=== PATIENT | male | born 1980 | race Caucasian/White ===

== ENCOUNTER 2017-09-15 13:51 | Day surgery (SDC) | payer SELFPAY ==
[~2017-09-15] VITALS: Ht 175.3 cm; Wt 78.5 kg
[~2017-09-15 13:51] MED LIST: TRANEXAMIC ACID 100 MG/ML 10 ML INJECTION IV ONE
--- OUTSIDE RECORDS SUMMARY | 2017-09-15 13:55 | XMS REPORT ---
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 Name Role Phone SHADY GRIFFITH CP Unavailable Allergies No Known Allergies Problems Problem Type Condition Code Onset Dates Condition Status Problem Nondependent cannabis abuse, unspecified 305.20 Active Problem Bipolar disorder, unspecified 296.80 Active Problem Nondependent amphetamine or related acting sympathomimetic abuse, unspecified 305.70 Active Problem Unspecified gastritis and gastroduodenitis without mention of hemorrhage 535.50 Active Problem Acute pharyngitis 462 Active Problem Pain in joint, site unspecified 719.40 Active Medications No Known Medications Results No Known Results Summary Purpose [employer] Submission
--- OUTSIDE RECORDS SUMMARY | 2017-09-15 13:55 | XMS REPORT | Continuity of Care Document ---
Author Author [facility] Organization [facility] Address Unknown Phone Unavailable Allergies Medications Problems Procedures Results Encounters ACCT No. Visit Date/Time Discharge Status Pt. Type Provider Facility Loc./Unit Complaint [id number] 03/09/2016 18:49:00 2015 19:09:00 DIS Emergency BRUCE WEBB, JAK [facility]
[2017-09-15] MEDS ORDERED: HYDROmorphone (DILAUDID) 2 MG/ML VIAL ONE (13:56)
[2017-09-15] MEDS ORDERED: SUCCINYLCHOLINE INJ 100 MG/5 ML SYR INJ ONE (14:03)
[2017-09-15] MEDS ORDERED: ETOMIDATE IV SOLN 20 MG/10 ML VIAL IV ONE (14:03)
[2017-09-15] MEDS ORDERED: fentaNYL INJECTION 100 MCG/2 ML AMP INJ ONE (14:03)
[2017-09-15] MEDS ORDERED: MIDAZOLAM 5 MG/5 ML (VERSED) VIAL INJ ONE (14:03)
[2017-09-15] MEDS ORDERED: LIDOCAINE/EPI 1%-1:200,000 (XYLOCAINE) 10 ML VIAL ONE (14:06)
[2017-09-15 14:08] LABS: MEAN PLATELET VOLUME 11.2 FL (7.4-10.4); RED BLOOD COUNT 4.6 10^6/uL (4.35-5.85); RED CELL DISTRIBUTION WIDTH 12.4 % (10.0-14.5); WHITE BLOOD COUNT 7.6 10^3/uL (4.3-11.0)
[2017-09-15] MEDS ORDERED: ONDANSETRON 4 MG/2 ML (SDV) Z0FRAN ONE (14:08)
[2017-09-15] MEDS ORDERED: DEXAMETHASONE 10 MG/ML (DECADRON) 1 ML VIAL ONE (14:08)
[2017-09-15] MEDS ORDERED: proPOfol 200 MG/20 ML (DIPRIVAN) VIAL IV ONE (14:08)
[2017-09-15] MEDS ORDERED: SEVOFLURANE (ULTANE) 15 ML INHAL SOLN ONE ×3 (14:08→15:30)
[2017-09-15] MEDS ORDERED: MIDAZOLAM 2 MG/2 ML (VERSED) VIAL ONE (14:09)
[2017-09-15] MEDS ORDERED: fentaNYL INJECTION 100 MCG/2 ML AMP ONE (14:09)
[2017-09-15] MEDS ORDERED: NS (IVPB) 50 ML ONE (14:19)
--- NOTE | 2017-09-15 14:22 | Consultation ---
History of Present Illness History of Present Illness Patient Consulted On(mary/time) 09/15/17 14:16 Time Seen by Provider: 13:51 History of Present Illness Pt is a 36 yo male who was using chainsaw to cut tree, when it bounced back into his left lower leg. Police department on seen saw large amount of spurting blood and tourniquet placed. I saw him as he entered the emergency department. According to EMS he "passed out a few times"; unknown if this was just due to pain, they placed a real tourniquet. Pt complaining of 10 out of 10 pain, sharp pain that radiates up to knee and then groin. This occurred just prior to coming in via EMS. Pt did not mention any specific nerve or sensation loss, pain unable to control and he was intubated in the ER. Allergies and Home Medications Allergies Coded Allergies: Morphine (Verified Allergy, "makes me violently ill", 09/15/17) Past Qgixcpp-Ikaxkk-Yxwlnr Hx Patient Social History Alcohol Use: Denies Use Recreational Drug Use: Yes Smoking Status: Never a Smoker Recent Foreign Travel: No Contact w/Someone Who Travel: No Immunizations Up To Date Tetanus Booster (TDap): More than 5yrs Seasonal Allergies Seasonal Allergies: No Surgeries Surgeries: Abdominal (hernia repairs), Appendectomy, Orthopedic Respiratory History of Respiratory Disorde: No Cardiovascular History of Cardiac Disorders: No Neurological History of Neurological Disord: No Reproductive System Hx Reproductive Disorders: No Sexually Transmitted Disease: No HIV/AIDS: No Gastrointestinal History of Gastrointestinal Di: No Musculoskeletal Musculoskeletal Disorders: Arthritis, Fractures Endocrine History of Endocrine Disorders: No HEENT History of HEENT Disorders: No Loss of Vision: Denies Cancer History of Cancer: No Psychosocial History of Psychiatric Problem: No Integumentary History of Skin or Integumenta: No Blood Transfusions History of Blood Disorders: No Family Medical History Significant Family History: CAD Over 55 Years Old (Father), COPD (Mother), Diabetes (Mother) Review of Systems-General Constitutional: No chills, No diaphoresis, dizziness EENTM: No blurred vision, No double vision, No mouth pain, No mouth swelling, No epistaxis Respiratory: No cough, No dyspnea on exertion, No hemoptysis, No short of breath Cardiovascular: No chest pain, No edema, No palpitations Gastrointestinal: No abdominal pain, No constipation, No hematemesis, No jaundice Genitourinary: No dysuria, No frequency, No hematuria, No hesitancy Musculoskeletal: see HPI Skin: see HPI Psychiatric/Neurological: Denies Anxiety, Denies Depressed Other denies any history of abnormal bleeding or bruising, denies heat or cold intolerance Physical Exam-General Problems Physical Exam Vital Signs Capillary Refill : General Appearance: WD/WN, severe distress Eyes: Bilateral Eye PERRL, Bilateral Eye EOMI HEENT: pharynx normal, No scleral icterus (R), No scleral icterus (L), No pale conjunctivae (R), No pale conjunctivae (L), No pharyngeal erythema Neck: non-tender, full range of motion, normal inspection, No thyromegaly Respiratory: chest non-tender, lungs clear, normal breath sounds, no respiratory distress, no accessory muscle use Cardiovascular: regular rate, rhythm, no edema, no murmur Gastrointestinal: normal bowel sounds, non tender, soft, no organomegaly, no pulsatile mass Rectal: deferred Back: no CVA tenderness, no vertebral tenderness Extremities: normal range of motion, non-tender, normal inspection, no pedal edema, no calf tenderness, other (large laceration appx 3 inches above medial malleolus, profuse bleeding once tourniquet is taken down, cannot tell from where. Does not appear to be any obvious tendon damage, will get better idea in controlled environment of OR.) Neurologic/Psychiatric: contract implementation analyst II-XII nml as tested, alert, oriented x 3 Skin: normal color, warm/dry Lymphatic: no adenopathy (neck, axilla or groin) Data Review Labs Laboratory Tests 09/15/17 14:01: White Blood Count 7.6, Red Blood Count 4.60, Hemoglobin 13.9, Hematocrit 42, Mean Corpuscular Volume 90, Mean Corpuscular Hemoglobin 30, Mean Corpuscular Hemoglobin Concent 34, Red Cell Distribution Width 12.4, Platelet Count 153, Mean Platelet Volume 11.2H 09/15/17 14:09: Assessment/Plan Assessment/Plan Assessment/Plan 1. Traumatic Laceration Left lower Extremity 2. Uncontrolled bleeding from vessels lower extremity 3. Incarcerated [facility] Plan is to take pt to OR for exploration, ligation, and washout of traumatic laceration. Spoke to pt just prior to intubation and explained why we needed to do this; got consent from his parents. Discussed possibility of pain, bleeding, infection, scar and damage to vessels and nerve. We do not know if there was any nerve damage prior to OR, could not asses and I will try and avoid any nerves. Will look for any tendon damage; spoke with the Orthopedic surgeon instructional media services technician, most concern is for the achilles tendon and much less for posterior tibial tendon. Only an Achilles would need immediate repair. Will try and wash area out and will most likely have to leave incision open; muscles cannot be sewn together, will heal on their own. WALLACE GUILLEN DO Sep 15, 2017 14:21
--- NOTE | 2017-09-15 14:29 | ED Trauma-Multisystem ---
General Chief Complaint: Trauma EMS/Air Arrival Activat Stated Complaint: CHAINSAW INJ TO LEG Source of Information: Patient, EMS Exam Limitations: No Limitations History of Present Illness Time Seen by Provider: 13:50 Initial Comments Here with report of chainsaw injury to the left lower leg inner aspect. He was capnometry at home when this occurred approximately 40 minutes ago. Estimated blood loss in the field was approximately 1 L or less. Tourniquet was applied by intellectual property lawyer arriving on scene. Apparently the wound was bleeding quite significantly despite direct pressure prior to tourniquet placement. Denies other injury. Occurred: Just Prior to Arrival Severity: Moderate, Severe Pain/Injury Location: Lower Extremity Method of Injury: Other (chainsaw) Modifying Factors: No Movement Associated Symptoms (Fall): No Abdominal Pain, No Chest Pain, No Nausea/ Vomiting, No Shortness of Air Allergies and Home Medications Allergies Coded Allergies: morphine (Verified Allergy, Unknown, "makes me violently ill", 09/15/17) Constitutional: see HPI, No chills, diaphoresis, No fever Eyes: No Symptoms Reported Ears: No Symptoms Reported Nose: No Symptoms Reported Mouth: No Symptoms Reported Throat: No Symptoms to Report Respiratory: no symptoms reported Cardiovascular: No Symptoms Reported Musculoskeletal: see HPI, joint pain, muscle pain Skin: see HPI, lesions, No pruritus All Other Systems Reviewed Negative Unless Noted: Yes Past Hdbsjvi-Ycnrkx-Ofgmfp Hx Patient Social History Alcohol Use: Denies Use Recreational Drug Use: Yes (methamphetamine) Smoking Status: Unknown if Ever Smoked Recent Foreign Travel: No Contact w/Someone Who Travel: No Surgeries History of Surgeries: Yes Surgeries: Orthopedic, Tonsillectomy Respiratory History of Respiratory Disorde: No Cardiovascular History of Cardiac Disorders: No Neurological History of Neurological Disord: No Gastrointestinal History of Gastrointestinal Di: No Musculoskeletal History of Musculoskeletal Dis: Yes Musculoskeletal Disorders: Fractures Endocrine History of Endocrine Disorders: No Reviewed Nursing Assessment Reviewed/Agree w Nursing PMH: Yes Family Medical History Significant Family History: Hypertension, Lung Disease Other Limited history due to trauma and clinical condition. Physical Exam General Appearance: WD/WN, Moderate Distress Head: No Evidence of Injury Eyes: Bilateral Eye Normal Inspection, Bilateral Eye PERRL, Bilateral Eye EOMI Ears, Nose, Throat: Hearing Grossly Normal, No Evidence of ENT Injury Neck: Full Range of Motion, Normal Inspection, Non Tender, Supple Cardiovascular: Regular Rate, Rhythm, No Murmur Respiratory: Lungs Clear, Normal Breath Sounds Gastrointestinal: Non Tender, Soft Back: Normal Inspection, No CVA Tenderness, No Vertebral Tenderness Extremity: Normal Range of Motion, Non Tender Neurologic/Psychiatric: Alert, Oriented x3 Skin: Cool, Damp, Pallor, Other (10 cm laceration to the medial aspect of the left lower leg above the ankle with waiting controlled with tourniquet but significant bleeding when tourniquet off.) Gertrude Coma Score Best Eye Response ([place]): (4) Open Spontaneously Best Verbal Response ([place]): (5) Oriented Best Motor Response ([place]): (6) Obeys Commands Date of ETT Placement: Sep 15, 2017 Time of ETT Placement: 14:09 Intubation Method: orotracheal Tube Size: 8 Medications: Etomidate, Succinylcholine Positive End Tide CO2: Yes Breath Sounds after Intubation: bilateral-equal Intubation Complications: no complications Post Intubation Xray: No Progress Patient to surgery after intubation. Patient has good lung volumes bilaterally with good O2 saturations and no apparent complications. Anesthesia assumed care of the patient's ventilation after intubation. I did discuss the fact that no chest x-ray was done with anesthesia when patient was in OR. They will monitor respiratory status. Progress/Results/Core Measures Results/Orders Lab Results Laboratory Tests Test 09/15/17 14:01 Range/Units White Blood Count 7.6 4.3-11.0 10^3/uL Red Blood Count 4.60 4.35-5.85 10^6/uL Hemoglobin 13.9 13.3-17.7 G/DL Hematocrit 42 40-54 % Mean Corpuscular Volume 90 80-99 FL Mean Corpuscular Hemoglobin 30 25-34 PG Mean Corpuscular Hemoglobin Concent 34 32-36 G/DL Red Cell Distribution Width 12.4 10.0-14.5 % Platelet Count 153 130-400 10^3/uL Mean Platelet Volume 11.2 H 7.4-10.4 FL My Orders Orders - PRANAV ROBERTO MD Hydromorphone Injection (Dilaudid Inject (09/15/17 13:56) Progress Note : Progress Note Seen and evaluated. Type I activation due to report of verbal consciousness. Apparently patient was nearly passing out with pain and blood loss at home. ATLS exam performed. Surgeon at bedside on patient's arrival (Dr. James). Rapid exam and evaluation completed. We did evaluate the wound with a tourniquet on and then loosened tourniquet. Wound bleeding was vigorous with partial reduction of tourniquet pressure. Attempted to reapply tourniquet twice and ultimately did get bleeding controlled. Patient in severe pain and writhing around in the bed due to the wound in the tourniquet. Patient will go to surgery for evaluation, repair and debridement. Report consent from patient to Dr. James for surgery. Family aware and didn't get to talk with the patient. Patient did receive 150 g of fentanyl by EMS as normal saline via large bore IV 1 L bolus. He did receive Dilaudid 2 mg IV after arrival. Due to severe pain and the fact that he is going emergently to surgery for repair of wound, elective intubation. ET tube placed without complications. Postintubation sedation with Versed 5 mg IV and fentanyl 100 g IV. TXA has been ordered. Surgery crew arrives. Patient is starting to move a little bit. Anticipate rocuronium by surgery crew. Tetanus is up-to-date. To OR with surgery crew and respiratory therapy at bedside at 1423. Departure Impression Impression: Primary Impression: Laceration of left lower extremity Qualified Codes: S81.812A - Laceration without foreign body, left lower leg, initial encounter Additional Impression: Laceration of artery Disposition: ADMITTED INPATIENT Condition: Stable Admissions Decision to Admit Reason: Admit from ER (Trauma) Decision to Admit/Date: Sep 15, 2017 Time/Decision to Admit Time: 14:23 Departure-Patient Inst. Referrals: NO,LOCAL PHYSICIAN (PCP/Family) Primary Care Physician PRANAV ROBERTO MD Sep 15, 2017 14:29
[2017-09-15] MEDS ORDERED: NS IV ONE (14:30)
[2017-09-15] MEDS ORDERED: TRANEXAMIC ACID IV ONE (14:30)
[2017-09-15 14:31] LABS: INR 1.1 (0.8-1.4); PROTHROMBIN TIME PATIENT 14.3 SEC (12.2-14.7)
[2017-09-15 14:40] LABS: ALANINE AMINOTRANSFERASE 8 U/L (0-55); ALBUMIN 3.9 GM/DL (3.2-4.5); ALCOHOL < 10 MG/DL (<10); ANION GAP 9 MMOL/L (5-14); ASPARTATE AMINO TRANSFERASE 14 U/L (5-34); BILIRUBIN,DIRECT 0.2 MG/DL (0.0-0.3); BILIRUBIN,INDIRECT 0.4 MG/DL; BILIRUBIN,TOTAL 0.6 MG/DL (0.1-1.0); BLOOD UREA NITROGEN 18 MG/DL (7-18); BUN/CREATININE RATIO 15; CARBON DIOXIDE 22 MMOL/L (21-32); CHLORIDE 107 MMOL/L (98-107); CREATINE KINASE 110 U/L (30-200); CREATININE SERUM 1.19 MG/DL (0.60-1.30); GFR ESTIMATED > 60; GLUCOSE 132 MG/DL (70-105); MAGNESIUM 1.5 MG/DL (1.8-2.4); PHOSPHORUS 2.5 MG/DL (2.3-4.7); POTASSIUM 3.8 MMOL/L (3.6-5.0); SODIUM 138 MMOL/L (135-145); TOTAL PROTEIN 6.5 GM/DL (6.4-8.2)
[2017-09-15] MEDS ORDERED: ceFAZolin 1,000 MG (ANCEF) VIAL ONE (14:44)
[2017-09-15] MEDS ORDERED: LACTATED RINGERS 1,000 ML IV PRN (14:45)
--- NOTE | 2017-09-15 15:07 | Progress Note-Post Operative ---
Post-Operative Progess Note Surgeon (s)/Vocational Instructor (s) Surgeon WALLACE GUILLEN DO Vocational Instructor: Anival Ramos MS III Pre-Operative Diagnosis Traumatic Laceration left lower extremity with vascular injury Post-Operative Diagnosis Same Procedure & Operative Findings Date of Procedure 09/15/17 Procedure Performed/Findings Ligation of bleeding vessels Washout Anesthesia Type GET Estimated Blood Loss Estimated blood loss (mL): 100ml during surgery Specimens/Packing Specimens Removed none WALLACE GUILLEN DO Sep 15, 2017 15:07
[2017-09-15] MEDS ORDERED: ONDANSETRON 4 MG/2 ML (SDV) Z0FRAN IVP PRN ×2 (15:15→15:30)
[2017-09-15] MEDS ORDERED: PROMETHAZINE INJ 25 MG/ML (PHENERGAN) AMP IVP PRN (15:30)
[2017-09-15] MEDS ORDERED: HYDROmorphone (DILAUDID) 2 MG/ML VIAL IVP PRN (15:30)
[2017-09-15] MEDS ORDERED: PHENYLEPHRINE 100 MCG/ML 10 ML (ANESTHESIA) SYR ONE (15:30)
[2017-09-15] MEDS ORDERED: MEPERIDINE (DEMEROL) INJ 50 MG/ML IVP PRN (15:30)
[2017-09-15] MEDS ORDERED: GLYCOPYRROLATE 0.2 MG/ML (ROBINUL) 2 ML VIAL ONE (15:30)
[2017-09-15] MEDS ORDERED: NEOSTIGMINE (BLOXIVERZ ) 1 MG/1ML 10 ML VIAL ONE (15:30)
[2017-09-15] MEDS ORDERED: ROCURONIUM 50 MG/5 ML (ZEMURON) VIAL IV ONE (15:32)
[2017-09-15] MEDS: LACTATED RINGERS 1,000 ML IV SCH (15:41)
[2017-09-15 16:30] VITALS: BP_SYST 123; BP_SYST 182; BP_DIAS 80; BP_DIAS 85
[2017-09-15] MEDS: HYDROmorphone (DILAUDID) 2 MG/ML VIAL IVP PRN (17:41)
[2017-09-15] MEDS ORDERED: CATHETER FLUSH 10 ML SYR IV PRN (18:15)
[2017-09-15] MEDS ORDERED: INFLUENZA TRIvalent 2017-2018 0.5 ML/45 MCG SYR IM ONE (19:15)
[2017-09-15 19:21] VITALS: BP 135/80
[2017-09-16] VITALS: BP 143/87
[2017-09-16] MEDS: HYDROcodone/APAP 10 MG/325 MG (LORTAB) TAB PO PRN ×3 (00:08→13:58)
--- NOTE | 2017-09-16 00:21 | OPERATIVE REPORT ---
DATE OF SERVICE: 09/15/2017 PREOPERATIVE DIAGNOSES: 1. Traumatic laceration to the left lower extremity medial aspect. 2. Bleeding vessels, possibly artery. POSTOPERATIVE DIAGNOSES: 1. Traumatic laceration to the left lower extremity medial aspect. 2. Bleeding vessels, possibly artery with possible damage to nerves. PROCEDURES: 1. Ligation of bleeding vessels. 2. Washout of laceration. SURGEON: Dr. James. WHARF LABORER: Medical Student, Anival Godwin. SPECIMENS: None. BLOOD LOSS: Approximately 100 mL during the case, but probably more prior to this. FLUIDS: Per anesthesia. POSTOPERATIVE CONDITION: Stable. INDICATION FOR PROCEDURE: The patient is a 36-year-old male who was at home cutting a tree and the chainsaw bounced back and hit him in the left lower extremity approximately 2 inches above the medial malleolus. It actually from almost the edge of the tibia out and then back posteriorly, had a tourniquet placed could not assess in the ER. He was in pain and he was intubated and taken directly to the operating room for emergent operation. FINDINGS: The patient had a long laceration approximately 4 inches long, stretching from about the edge of the tibia and going posteriorly and distally down to about 2 inches above the medial malleolus. It did look like it got a small portion of the Achilles tendon and then mostly some muscle damage as well as with the vascular damage and possibly one damaged nerve, could not tell. PROCEDURE NOTE: After informed consent was obtained, the patient was brought to the operating room. He was placed in the bed in the supine position. He had been intubated in the ER. He was sterilely prepped and draped in normal fashion with a tourniquet placed. I identified some vessels that were completely lacerated and then small vessels that looked like arterial and venous, grasped these with hemostats, and then ligated with 3-0 Vicryl ties and then tried to identify any further vessels, tied off superiorly and inferiorly, tied at least 1 artery and one vein on both sides and then some other small vasculature areas also tied, ligated with, I believe it was 3-0, it might have been 2-0 Vicryl. At this point, the tourniquet had been on 340, brought it down to 240, started getting some bleeding from the edges of the wound. This was controlled with Bovie electrocautery. Had some deep muscle bleeding. I saw another small artery bleeding in the middle muscle belly. This was controlled with Bovie electrocautery, took it down to 140 and then took the tourniquet all the way off. At this point, there was only minimal bleeding from the edges of the wound and skin, controlled with Bovie electrocautery and then washed out with a pulse electric trucker, 2 liters of saline to wash this out. At the end, there did not appear to be any fast bleeding. There was minimal, minimal oozing. Could identify the Achilles tendon. When I moved the foot up and down it moved. It was mostly intact. There may have been a small 2 to 3 mm portion of it that had gotten cut with the chainsaw. Mostly the soleus muscle that was involved. I saw what looked like possibly one nerve was cut, could not find the distal portion of it. It looked like there was another nerve intact. This is most likely tibial artery and possibly the saphenous vein, unsure which exactly vessels were cut and could not tell if the posterior tibial tendon was affected. Will have to reassess once the patient wakes up and we can do a better physical exam. We will need pain control, then packed this wound 4 x 4's and then wrapped it with Kerlix and the patient was then transferred to recovery room in stable condition. Sponge, instrument and needle count correct at the end of the case. Job ID: [id number] DocumentID: [id number] Dictated Date: 09/15/2017 16:00:15 Plastic Outfitter Date: 09/15/2017 23:50:12 Dictated By: WALLACE JAMES DO
[2017-09-16] MEDS: LACTATED RINGERS 1,000 ML IV SCH ×2 (01:57→10:14)
[2017-09-16] MEDS: HYDROmorphone (DILAUDID) 2 MG/ML VIAL IVP PRN ×2 (04:50→10:06)
[2017-09-16 05:00] VITALS: BP 136/91
[2017-09-16 06:13] LABS: BASOPHILS % (AUTO) 0 % (0-10); EOSINOPHILS % (AUTO) 0 % (0-10); LYMPHOCYTES # (AUTO) 0.8 X 10^3 (1.0-4.0); LYMPHOCYTES % (AUTO) 6 % (12-44); MEAN CORPUSCULAR HEMOGLOBIN 30 PG (25-34); MEAN CORPUSCULAR HGB CONC 34 G/DL (32-36); MEAN CORPUSCULAR VOLUME 91 FL (80-99); MEAN PLATELET VOLUME 11.2 FL (7.4-10.4); MONOCYTES # (AUTO) 0.8 X 10^3 (0.0-1.0); MONOCYTES % (AUTO) 7 % (0-12); NEUTROPHILS # (AUTO) 11.4 X 10^3 (1.8-7.8); NEUTROPHILS % (AUTO) 87 % (42-75); PLATELET COUNT 250 10^3/uL (130-400); RED BLOOD COUNT 4.32 10^6/uL (4.35-5.85); RED CELL DISTRIBUTION WIDTH 12.3 % (10.0-14.5)
[2017-09-16 06:23] LABS: ALANINE AMINOTRANSFERASE 10 U/L (0-55); ALBUMIN 3.7 GM/DL (3.2-4.5); ANION GAP 9 MMOL/L (5-14); ASPARTATE AMINO TRANSFERASE 12 U/L (5-34); BILIRUBIN,TOTAL 0.5 MG/DL (0.1-1.0); BLOOD UREA NITROGEN 17 MG/DL (7-18); BUN/CREATININE RATIO 18; CALCIUM 8.3 MG/DL (8.5-10.1); CARBON DIOXIDE 24 MMOL/L (21-32); CHLORIDE 102 MMOL/L (98-107); CREATININE SERUM 0.97 MG/DL (0.60-1.30); GFR ESTIMATED > 60; GLUCOSE 126 MG/DL (70-105); POTASSIUM 4.3 MMOL/L (3.6-5.0); SODIUM 135 MMOL/L (135-145); TOTAL PROTEIN 6.1 GM/DL (6.4-8.2)
[2017-09-16 08:00] VITALS: BP 119/69
[2017-09-16 09:16] VITALS: BP 119/69
--- NOTE | 2017-09-16 10:08 | Progress Note ---
Subjective Time Seen by Provider: 09:54 Subjective/Events-last exam Pt seen and examined, tolerating clears would like to eat more. Pain is manageable if he is not moving, otherwise "feels like my foot is dipped in lava". Taking only oral meds right now. Review of Systems General: No Chills, No Night Sweats Cardiovascular: No: Chest Pain Objective Exam Vital Signs Date Time Temp Pulse Resp B/P (MAP) Pulse Ox O2 Delivery O2 Flow Rate FiO2 09/16/17 08:00 99.3 91 20 119/69 (86) 97 Room Air 09/16/17 05:00 98.5 99 19 136/91 (106) 96 Room Air 09/16/17 00:00 97.3 88 18 143/87 (105) 98 Room Air 09/15/17 19:21 97.1 62 18 135/80 (98) 96 Room Air 09/15/17 18:12 98.4 09/15/17 17:41 98.4 09/15/17 16:40 96 Room Air 09/15/17 16:30 96.2 77 16 123/85 (98) 96 Room Air 09/15/17 14:23 95.9 99 14 100 Ambu Bag 09/15/17 13:55 95.9 99 18 133/125 (128) 100 I & O 09/16/17 07:00 Intake Total 1600 ml Output Total 375 ml Balance 1225 ml Capillary Refill : Less Than 3 SecondsLess Than 3 Seconds General Appearance: WD/WN, Mild Distress Respiratory: Lungs Clear, Normal Breath Sounds Cardiovascular: Regular Rate, Rhythm, No Murmur Extremity: Other (pt can wiggle toes, proprioception is also normal on all toes , can move foot all directions, but it causes severe pain) Neurologic/Psychiatric: Alert, Oriented x3 Results Lab Laboratory Tests 09/15/17 14:01: White Blood Count 7.6, Red Blood Count 4.60, Hemoglobin 13.9, Hematocrit 42, Mean Corpuscular Volume 90, Mean Corpuscular Hemoglobin 30, Mean Corpuscular Hemoglobin Concent 34, Red Cell Distribution Width 12.4, Platelet Count 153, Mean Platelet Volume 11.2H 09/15/17 14:09: Prothrombin Time 14.3, INR Comment 1.1, Activated Partial Thromboplast Time 23L , Fibrinogen 270, D-Dimer 0.30, Sodium Level 138, Potassium Level 3.8, Chloride Level 107, Carbon Dioxide Level 22, Anion Gap 9, Blood Urea Nitrogen 18, Creatinine 1.19, Estimat Glomerular Filtration Rate > 60, BUN/Creatinine Ratio 15, Glucose Level 132H, Calcium Level 8.0L, Phosphorus Level 2.5, Magnesium Level 1.5L, Total Bilirubin 0.6, Direct Bilirubin 0.2, Indirect Bilirubin 0.4, Aspartate Amino Transf (AST/SGOT) 14, Alanine Aminotransferase (ALT/SGPT) 8, Alkaline Phosphatase 63, Total Creatine Kinase 110, Troponin I < 0.30, Total Protein 6.5, Albumin 3.9, Serum Alcohol < 10 09/16/17 05:54: White Blood Count 13.0H, Red Blood Count 4.32L, Hemoglobin 13.1L, Hematocrit 39L , Mean Corpuscular Volume 91, Mean Corpuscular Hemoglobin 30, Mean Corpuscular Hemoglobin Concent 34, Red Cell Distribution Width 12.3, Platelet Count 250, Mean Platelet Volume 11.2H, Sodium Level 135, Potassium Level 4.3, Chloride Level 102, Carbon Dioxide Level 24, Anion Gap 9, Blood Urea Nitrogen 17, Creatinine 0.97, Estimat Glomerular Filtration Rate > 60, BUN/Creatinine Ratio 18, Glucose Level 126H, Calcium Level 8.3L, Total Bilirubin 0.5, Aspartate Amino Transf (AST/SGOT) 12, Alanine Aminotransferase (ALT/SGPT) 10, Alkaline Phosphatase 59, Total Protein 6.1L, Albumin 3.7, Neutrophils (%) (Auto) 87H, Lymphocytes (%) (Auto) 6L, Monocytes (%) (Auto) 7, Eosinophils (%) (Auto) 0, Basophils (%) (Auto) 0, Neutrophils # (Auto) 11.4H, Lymphocytes # (Auto) 0.8L, Monocytes # (Auto) 0.8, Eosinophils # (Auto) 0.0, Basophils # (Auto) 0.0 Assessment/Plan Assessment/Plan Assessment/Plan 1. Traumatic Laceration Left lower Extremity 2. Uncontrolled bleeding from vessels lower extremity 3. Incarcerated [facility] Plan is to increase diet, PT consult. Will do dressing changes daily and as needed. Plan to try only oral pain meds and get pt home possibly tomorrow. Clinical Quality Measures DVT/VTE Risk/Contraindication: Risk Factor Score Per Nursin RFS Level Per Nursing on Admit: 2=Moderate WALLACE GUILLEN DO Sep 16, 2017 10:08
[2017-09-16] MEDS ORDERED: IBUP-30 PO (10:34)
--- NOTE | 2017-09-16 13:38 | Physical Therapy Ortho Eval ---
PT Orthopedic Evaluation Type of Surgery Traumatic laceration to distal lateral aspect of L LE Prior Level of Function Current Living Status: Significant Other Locomotion (Upon Admit): Independent Subjective Subjective Patient states he is in a lot of pain and cannot put pressure through the L LE. Patient is very eager to leave the hospital. Patient agrees to use of FWW for ambulation until he feels comfortable to WB through L LE. Entry Into Home: Stairs Without Railing Steps Into Home: 3 Motor Control Motor Control: Motor Control WNL ROM ROM: WFL, except focal deficit Strength Strength: WFL Transfer Transfers (B, C, W/C) (FIM): 6 Patient transfers with mod I accounting for inability to freely move L LE from pain. Gait Gait Assistive Device: FWW Patient ambulates with NWB L LE and hops to the FWW. Patient ambulation is safe. Right Lower Extremity: Right Weight Bearing Status RLE: Full Weight Bearing Left Lower Extremity: Left Other Weight Bearing Inst.: does not have WB status; chooses to NWB through L LE Gait (FIM): 6 Distance: 200' Gait Level of Assist: 6 Summary/Comments Patient overall health and ability to propel FWW with hop to gait and understanding of safe ambulation deem this patient safe for dismissal from PT services. Treatment Rendered Treatment: Gait Train Assessment/Goals Goal Time Frame: 1 Visit Safe Ambulation: Yes Plan Treatment Plan: Discharge PT/Family Agrees to Plan: Yes Time Time In: 1250 Time Out: 1305 Total Billed Treatment Time: 15 Billed Treatment Time 1 visit EVL 15 min BRITTNEY COOPER PT Sep 16, 2017 13:38
--- NOTE | 2017-09-16 14:22 | Anesthesia-General Post-Op ---
General Patient Condition Mental Status/LOC: Same as Preop Cardiovascular: Satisfactory Nausea/Vomiting: Absent Respiratory: Satisfactory Pain: Controlled Complications: Absent Post Op Complications Complications None Follow Up Care/Instructions Patient Instructions None needed. Anesthesia/Patient Condition Patient Condition Patient is doing well, no complaints, stable vital signs, no apparent adverse anesthesia problems. No complications reported per nursing. PASCUAL HUDSON CRNA Sep 16, 2017 14:22
--- NOTE | 2017-09-16 15:42 | Discharge Inst-Surgical ---
Discharge Inst-Surgical Depart Medication/Instructions New, Converted or Re-Newed RX: RX Given to Pt/Family Patient Instructions Follow up Appt: Make appointment for Wednesday 09/19, Instructions: No lifting greater than 10 pounds. No strenuous activity. May shower in 24 hours, no tub bath or soaking. Use incentive spirometer at home as directed. No Smoking Skin/Wound Care: Change dressing daily, with 4x4 and then wrap with Kerlix. Symptoms to Report: Appetite Changes, Extremity Discoloration, Numbness/Tingling, Swelling Increased , Bleeding Excessive, Eyesight Changes, Pain Increased, Urine Color Change, Constipation(Persistent), Fever over 101 degree F, Pain/Pressure in chest, Urinating Difficulty, Cough Up/Vomit Blood, Heart Beat Irreg/Pounding, Pain/ Pressure in jaw, Vaginal Bleeding Increase, Cramps in feet or legs, Lightheadedness, Pain/Pressure in shoulder, Diarrhea(Persistent), Memory Changes Suddenly, Questions/Concerns, Weight gain consecutive days, Dizziness/ Fainting, Nausea/Vomiting, Shortness of Breath, Weight gain over 2 pounds If questions or concerns contact your physician Or seek help at emergency department. Activity Activity as Tolerated: Yes Walking Assistive Device: Walker Driving Instructions: No Driving/Refer to Dr. Kesslre Discharge Diet: No Restrictions Diet After 24 Hours: Clear Liquid if Nauseous If Any Problems/Questions/Issu: Contact Your Physician, Go to Emergency Room Skin/Wound Care Infection Signs and Symptoms: Increased Redness, Foul Odor of Wound, Increased Drainage, Skin Itchy or Has a Rash, Increased Swelling, Temperature Above 101 F Wound Care Comment: Return to ER if any increased bleeding. Bathing Instructions: WALLACE Rosales DO Sep 16, 2017 15:42
[2017-09-16 15:57] VITALS: BP 153/103
[2017-09-16 16:15] VITALS: BP 119/69
== END 2017-09-16 15:19 | disposition home or self-care (01) ==
LOC: EDUNIT# 13:51 → ER 13:52 → SDC 14:02 → 4TH 16:25 → SDC 09-16 15:19
PROVIDERS: ATTEND Surgery
DX: S85.912A Laceration of unspecified blood vessel at lower leg level, left leg, initial encounter (principal); S81.812A Laceration without foreign body, left lower leg, initial encounter; J45.909 Unspecified asthma, uncomplicated; F15.90 Other stimulant use, unspecified, uncomplicated; W29.3XXA Contact with powered garden and outdoor hand tools and machinery, initial encounter; Y92.017 Garden or yard in single-family (private) house as the place of occurrence of the external cause; Z82.49 Family history of ischemic heart disease and other diseases of the circulatory system
CPT/HCPCS: 31500; 43760; 80048; 80076; 80320; 82550; 83735; 84100; 84484; 85379; 85384; 85610; 85730; 86850; 86900; 86901; 86920; 99291

== ENCOUNTER 2019-10-01 03:01 | Emergency (ER) | payer OTHER ==
[~2019-10-01] VITALS: Ht 177 cm; Wt 77.0 kg
[~2019-10-01 03:01] MED LIST changes: +IBUP-30 PO; -TRANEXAMIC ACID 100 MG/ML 10 ML INJECTION IV ONE
[2019-10-01] MEDS ORDERED: ASPIRIN 81 MG CHEW (CHILDREN'S ASA) PO ONE (03:15)
[2019-10-01] MEDS ORDERED: NITROGLYCERIN 2% OINT 1 GM UNIT DOSE PACKET TOP ONE (03:15)
--- NOTE | 2019-10-01 03:15 | NUR ---
RELEASE OF INFORMATION FAXED TO DEREJE AGUILLON AT [facility] FOR PREVIOUS ADMISSION RECORDS..
[2019-10-01 03:30] LABS: BASOPHILS # (AUTO) 0.1 10^3/uL (0.0-0.1); BASOPHILS % (AUTO) 1 % (0-10); EOSINOPHILS # (AUTO) 0.1 10^3/uL (0.0-0.3); EOSINOPHILS % (AUTO) 2 % (0-10); HEMATOCRIT 27 % (40-54); HEMOGLOBIN 8.3 G/DL (13.3-17.7); LYMPHOCYTES # (AUTO) 1.5 X 10^3 (1.0-4.0); LYMPHOCYTES % (AUTO) 25 % (12-44); MEAN CORPUSCULAR HEMOGLOBIN 27 PG (25-34); MEAN CORPUSCULAR HGB CONC 31 G/DL (32-36); MEAN CORPUSCULAR VOLUME 88 FL (80-99); MONOCYTES # (AUTO) 0.4 X 10^3 (0.0-1.0); MONOCYTES % (AUTO) 7 % (0-12); NEUTROPHILS # (AUTO) 3.8 X 10^3 (1.8-7.8); NEUTROPHILS % (AUTO) 65 % (42-75); RED CELL DISTRIBUTION WIDTH 17.5 % (10.0-14.5); WHITE BLOOD COUNT 5.9 10^3/uL (4.3-11.0)
[2019-10-01 03:35] LABS: FIBRIN DEGRADATION PRODUCTS 2.37 UG/ML (0.00-0.49); INR 1.2 (0.8-1.4); PROTHROMBIN TIME PATIENT 15.5 SEC (12.2-14.7)
[2019-10-01 03:35] LABS: PLATELET COUNT 54 10^3/uL (130-400)
[2019-10-01 03:40] LABS: ALANINE AMINOTRANSFERASE 28 U/L (0-55); ALBUMIN 3.8 GM/DL (3.2-4.5); ALKALINE PHOSPHATASE 67 U/L (40-136); BILIRUBIN,TOTAL 0.5 MG/DL (0.1-1.0); BUN/CREATININE RATIO 19; CALCIUM 8.3 MG/DL (8.5-10.1); CARBON DIOXIDE 18 MMOL/L (21-32); CHLORIDE 108 MMOL/L (98-107); CREATININE SERUM 1.29 MG/DL (0.60-1.30); GFR ESTIMATED > 60; GLUCOSE 93 MG/DL (70-105); LIPASE 25 U/L (8-78); POTASSIUM 4.3 MMOL/L (3.6-5.0); SODIUM 137 MMOL/L (135-145)
[2019-10-01 03:41] LABS: AMPHETAMINE SCREEN, URINE POSITIVE (NEGATIVE); BARBITURATE SCREEN URINE NEGATIVE (NEGATIVE); BENZODIAZEPINES SCREEN URINE NEGATIVE (NEGATIVE); CANNABINOID SCREEN, URINE POSITIVE (NEGATIVE); COCAINE SCREEN URINE NEGATIVE (NEGATIVE); METHADONE STAT NEGATIVE (NEGATIVE); METHAMPHETAMINE SCREEN URINE S NEGATIVE (NEGATIVE); OPIATE SCREEN URINE NEGATIVE (NEGATIVE); OXYCODONE STAT NEGATIVE (NEGATIVE); PROPOXYPHENE STAT NEGATIVE (NEGATIVE); TRICYCLIC ANTIDEPRESSANTS SCRE NEGATIVE (NEGATIVE)
[2019-10-01 04:15] VITALS: BP 195/133
--- NOTE | 2019-10-01 04:15 | NUR ---
PT SUDDENLY LEFT ED AMA WITH IV STILL IN HIS ARM, WHEN ASKED TO STAY TO AT LEAST LET STAFF REMOVE THE IV THE PT REFUSED. PD CONTACTED.
--- NOTE | 2019-10-01 04:20 | ED Chest Pain ---
General Chief Complaint: Abdominal/GI Problems Stated Complaint: ABD PAIN Nursing Triage Note: PT PRESENTS TO THE ED VIA EMS C/O ABD PAIN AND TENDERNESS THAT ONSET EARLIER TODAY, EMS STAFF STATE THAT INITIALLY THE PT WAS COMPLAINING OF CHEST, SHOULDER, AND NECK PAIN BUT THEN EN ROUTE STATED IT IS NOW ONLY HIS ABD. PT STATES HE LEFT AMA FROM [facility] AND WAS ADVISED HE HAD SEVERAL BLOOD CLOTS IN HIS BODY, BUT LEFT ANYWAY. VERBALIZED MILD NAUSEA EN ROUTE. Nursing Sepsis Screen: No Definite Risk Source: patient, family, old records (records from [facility]) Exam Limitations: no limitations History of Present Illness Date Seen by Provider: Oct 01, 2019 Time Seen by Provider: 03:03 Initial Comments This 38-year-old man presents to the emergency room via EMS with complaints of headache, chest pain, upper abdominal pain, shortness of breath, and significant hypertension. Apparently he had pulled over and flagged down a deck officer according to his report. EMS was then activated by law-enforcement. Patient reports leaving [facility] in [place] a couple of days ago AGAINST MEDICAL ADVICE. He reports he had been treated with blood thinners, presumably Lovenox injections. He reports he has "full of blood clots". He was also treated by IV medications for severe hypertension. He is not taking any medications at this time. He admits to marijuana use but denies any other drug or alcohol use. He is markedly hypertensive on assessment. Patient reportedly has chronic untreated hypertension. His presents with him. Allergies and Home Medications Allergies Coded Allergies: morphine (Verified Allergy, Unknown, "makes me violently ill", 09/15/17) Home Medications Ibuprofen 200 Mg Tablet, 800 MG PO Q8H PRN for PAIN-MILD, (Reported) Patient Home Medication List Home Medication List Reviewed: Yes Review of Systems Review of Systems Constitutional: no symptoms reported EENTM: No Symptoms Reported Respiratory: See HPI Cardiovascular: See HPI Gastrointestinal: See HPI Genitourinary: No Symptoms Reported Musculoskeletal: no symptoms reported Skin: no symptoms reported Psychiatric/Neurological: See HPI Endocrine: No Symptoms Reported Hematologic/Lymphatic: No Symptoms Reported Past Rnyzuzb-Pomjfi-Idtxzl Hx Past Med/Social Hx: Reviewed and Corrections made Patient Social History Alcohol Use: Occasionally Uses Alcohol Beverage of Choice: Beer Recreational Drug Use: Yes Drug of Choice: MARIJUANNA Smoking Status: Never a Smoker Recent Foreign Travel: No Contact w/Someone Who Travel: No Recent Infectious Disease Expo: No Recent Hopitalizations: No Immunizations Up To Date Tetanus Booster (TDap): More than 5yrs PED Vaccines UTD: Yes Seasonal Allergies Seasonal Allergies: No Past Medical History Surgeries: Yes Appendectomy, Bowel Surgery, Orthopedic, Tonsillectomy Respiratory: No Cardiac: Yes (ENLARGED HEART- PER PT) Chronic Edema/Swelling, Deep Vein Thrombosis, Hypertension Neurological: No Reproductive Disorders: No Sexually Transmitted Disease: No HIV/AIDS: No Genitourinary: No Gastrointestinal: Yes Gastroesophageal Reflux Musculoskeletal: Yes Fractures Endocrine: No HEENT: No Loss of Vision: Denies Cancer: No Psychosocial: No Integumentary: No Blood Disorders: No Family Medical History Hypertension, Lung Disease Physical Exam Vital Signs Vital Signs - First Documented 10/01/19 03:01 Temp 36.4 Pulse 101 Resp 26 B/P (MAP) 195/133 (153) Pulse Ox 100 O2 Delivery Room Air Capillary Refill : Less Than 3 Seconds Height, Weight, BMI Height: 5'9.00" Weight: 173lbs. 0.0oz. 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 Norm as Tested Skin: Normal Color, Warm/Dry Procedures/Interventions Date of ETT Placement: Sep 15, 2017 Time of ETT Placement: 1409 Progress/Results/Core Measures Results/Orders Lab Results Laboratory Tests Test 10/01/19 03:09 10/01/19 03:20 10/01/19 03:23 Range/Units Prothrombin Time 15.5 H 12.2-14.7 SEC INR Comment 1.2 0.8-1.4 Activated Partial Thromboplast Time 20 L 24-35 SEC D-Dimer 2.37 H 0.00-0.49 UG/ML Sodium Level 137 135-145 MMOL/L Potassium Level 4.3 3.6-5.0 MMOL/L Chloride Level 108 H 98-107 MMOL/L Carbon Dioxide Level 18 L 21-32 MMOL/L Anion Gap 11 5-14 MMOL/L Blood Urea Nitrogen 24 H 7-18 MG/DL Creatinine 1.29 0.60-1.30 MG/DL Estimat Glomerular Filtration Rate > 60 BUN/Creatinine Ratio 19 Glucose Level 93 70-105 MG/DL Calcium Level 8.3 L 8.5-10.1 MG/DL Corrected Calcium 8.5 8.5-10.1 MG/DL Magnesium Level 2.0 1.6-2.4 MG/DL Total Bilirubin 0.5 0.1-1.0 MG/DL Aspartate Amino Transf (AST/SGOT) 25 5-34 U/L Alanine Aminotransferase (ALT/SGPT) 28 0-55 U/L Alkaline Phosphatase 67 40-136 U/L Myoglobin 36.0 10.0-92.0 NG/ML Troponin I < 0.028 <0.028 NG/ML Total Protein 6.0 L 6.4-8.2 GM/DL Albumin 3.8 3.2-4.5 GM/DL Lipase 25 8-78 U/L Serum Alcohol < 10 <10 MG/DL Urine Opiates Screen NEGATIVE NEGATIVE Urine Oxycodone Screen NEGATIVE NEGATIVE Urine Methadone Screen NEGATIVE NEGATIVE Urine Propoxyphene Screen NEGATIVE NEGATIVE Urine Barbiturates Screen NEGATIVE NEGATIVE Ur Tricyclic Antidepressants Screen NEGATIVE NEGATIVE Urine Phencyclidine Screen NEGATIVE NEGATIVE Urine Amphetamines Screen POSITIVE H NEGATIVE Urine Methamphetamines Screen NEGATIVE NEGATIVE Urine Benzodiazepines Screen NEGATIVE NEGATIVE Urine Cocaine Screen NEGATIVE NEGATIVE Urine Cannabinoids Screen POSITIVE H NEGATIVE White Blood Count 5.9 4.3-11.0 10^3/uL Red Blood Count 3.07 L 4.35-5.85 10^6/uL Hemoglobin 8.3 L 13.3-17.7 G/DL Hematocrit 27 L 40-54 % Mean Corpuscular Volume 88 80-99 FL Mean Corpuscular Hemoglobin 27 25-34 PG Mean Corpuscular Hemoglobin Concent 31 L 32-36 G/DL Red Cell Distribution Width 17.5 H 10.0-14.5 % Platelet Count 54 L 130-400 10^3/uL Mean Platelet Volume 7.4-10.4 FL Neutrophils (%) (Auto) 65 42-75 % Lymphocytes (%) (Auto) 25 12-44 % Monocytes (%) (Auto) 7 0-12 % Eosinophils (%) (Auto) 2 0-10 % Basophils (%) (Auto) 1 0-10 % Neutrophils # (Auto) 3.8 1.8-7.8 X 10^3 Lymphocytes # (Auto) 1.5 1.0-4.0 X 10^3 Monocytes # (Auto) 0.4 0.0-1.0 X 10^3 Eosinophils # (Auto) 0.1 0.0-0.3 10^3/uL Basophils # (Auto) 0.1 0.0-0.1 10^3/uL B-Type Natriuretic Peptide 602.0 H <100.0 PG/ML My Orders Orders - BRITT CHÁVEZ MD Cbc With Automated Diff (10/01/19 03:11) Magnesium (10/01/19 03:11) Chest 1 View, Ap/Pa Only (10/01/19 03:11) Ekg Tracing (10/01/19 03:11) Comprehensive Metabolic Panel (10/01/19 03:11) Myoglobin Serum (10/01/19 03:11) Protime With Inr (10/01/19 03:11) Partial Thromboplastin Time (10/01/19 03:11) O2 (10/01/19 03:11) Monitor-Rhythm Ecg Trace Only (10/01/19 03:11) Ed Iv/Invasive Line Start (10/01/19 03:11) Aspirin Chewable Tablet (Baby Aspirin Ch (10/01/19 03:15) Nitroglycerin Ointment (Nitrobid Ointme (10/01/19 03:15) Lipase (10/01/19 03:09) Troponin I (10/01/19 03:09) Drug Screen Stat (Urine) (10/01/19 03:14) Fibrin Degradation Products (10/01/19 03:09) Alcohol (10/01/19 03:09) BNP (10/01/19 03:19) Medications Given in ED Current Medications Medications Dose Ordered Sig/Allie Route Start Time Stop Time Status Last Admin Dose Admin Aspirin 324 mg ONCE ONCE PO 10/01/19 03:15 10/01/19 03:16 DC 10/01/19 03:18 324 MG Nitroglycerin 1 inch ONCE ONCE TOP 10/01/19 03:15 10/01/19 03:16 DC 10/01/19 03:19 1 INCH Vital Signs/I&O 10/01/19 10/01/19 03:01 04:15 Temp 36.4 36.4 Pulse 101 101 Resp 26 26 B/P (MAP) 195/133 (153) 195/133 (153) Pulse Ox 100 100 O2 Delivery Room Air Blood Pressure Mean: 153 Progress Progress Note : Progress Note Patient was seen and assessed. Nitroglycerin ointment was applied to control blood pressure. Labs and x-ray were assessed. Records from the admission at [facility] were obtained and reviewed. Patient was noted to have been thor oughly assessed at [facility]. He was found to have severe hypertension and started on a Cardene drip. Ultrasound of the lower extremities and CT angiogram of the chest were negative at [facility]. Nitroglycerin paste was not significantly improving his blood pressure. Consideration was being given to Cardene drip but patient abruptly walked out of the emergency room with his IV intact. [place] police were contacted to welfare check the patient because of the IV still in place. Initial ECG Impression Date: Oct 01, 2019 Initial ECG Impression Time: 03:22 Initial ECG Rate: 98 Initial ECG Rhythm: Normal Sinus Initial ECG Intervals: Normal Initial ECG Impression: Normal Comment Sinus rhythm with no ST elevation or depression. No abnormal intervals or axis deviation. Diagnostic Imaging Diagonstic Imaging: Xray Plain Films/CT/US/NM/MRI: chest Comments Chest x-ray viewed by me and report not yet available. No acute abnormalities appreciated. Departure Impression Primary Impression: Chest pain Qualified Codes: R07.89 - Other chest pain Additional Impressions: Hypertensive emergency Elevated d-dimer Left against medical advice Disposition: 07 AGAINST MEDICAL ADVICE Condition: Against Medical Advice Departure-Patient Inst. Referrals: NO,LOCAL PHYSICIAN (PCP/Family) Primary Care Physician BRITT CHÁVEZ MD Oct 01, 2019 04:20
--- NOTE | 2019-10-01 06:08 | Diagnostic Imaging Report ---
INDICATION: Chest pain. COMPARISON: None FINDINGS: Single frontal view of the chest demonstrates mild enlargement of the cardiac silhouette. Pulmonary vasculature, however is within normal limits. The lungs are well aerated and clear. No large pleural effusion or pneumothorax is seen. The visualized osseous structures show no acute abnormalities. IMPRESSION: 1. Mild enlargement of cardiac silhouette, which may be exaggerated by portable technique. There is otherwise no evidence of failure or focal infiltrate. Dictated by: Dictated on workstation # [id number]
== END 2019-10-01 04:15 | disposition left against medical advice (07) ==
LOC: EDUNIT# 03:01 → ER 03:03
DX: R07.9 Chest pain, unspecified (principal); I16.1 Hypertensive emergency; R79.1 Abnormal coagulation profile; I10 Essential (primary) hypertension; K21.9 Gastro-esophageal reflux disease without esophagitis; Z88.5 Allergy status to narcotic agent; Z90.49 Acquired absence of other specified parts of digestive tract; Z90.89 Acquired absence of other organs; Z86.718 Personal history of other venous thrombosis and embolism; Z82.49 Family history of ischemic heart disease and other diseases of the circulatory system
CPT/HCPCS: 36415; 71045; 80053; 80306; 80320; 83690; 83735; 83874; 83880; 84484; 85025; 85379; 85610; 85730; 93041